=== PATIENT | male | born 1955 | race Caucasian/White ===

== ENCOUNTER 2016-09-19 09:14 | Day surgery (SDC) | payer BC ==
[2016-09-14 16:17] VITALS: BMI 42.5
[~2016-09-19 09:14] MED LIST: LACTATED RINGERS 1,000 ML IV SCH
[2016-09-19] MEDS ORDERED: LIDOCAINE 1% 20 ML VIAL (10MG/ML) FOR IV START INTRADERMA ONE (10:12)
[2016-09-19 10:15] VITALS: RESP 16; TEMP 98.2
[2016-09-19] MEDS ORDERED: PROPOFOL 10 MG/ML 20 ML VIAL IV ONE (10:31)
--- NOTE | 2016-09-19 10:57 | P.PCN ---
Date of Procedure: 09/19/16 Procedure(s) Performed: Procedure: Total colonoscopy Preoperative diagnosis: Screening for neoplasia, patient has family history of colon cancer. Postoperative diagnosis: Diverticulosis with no evidence of acute diverticulitis , strictures, polyps or cancer. Preparation: HalfLytely prep. Sedation: Was provided by anesthesia. Brief clinical history: The patient is a 61-year-old male who is scheduled for this evaluation for screening for neoplasia because of history of colon cancer in his mother. His last exam was in August 2011. The patient has no abdominal complaints, bleeding or anemia. Procedure: With the patient on his left lateral decubitus position and after informed consent and adequate sedation, the perianal area was inspected and it did not show any fissures or fistulas. There were no masses felt on digital rectal examination. The Olympus CFQ 160L video colonoscope was then inserted in the rectum in the usual fashion and advanced to the cecum. There were multiple diverticular orifices seen scattered on the left side and occasional diverticular orifices seen around the hepatic flexure with no evidence of acute diverticulitis or strictures. The mucosa appeared healthy. No polyps or tumors were seen. I retroflexed endoscope in the rectum before the endoscope was withdrawn. The patient tolerated the procedure well. Plan: The patient was reassured. Discussed dietary measures. With his family history, I am recommending repeat exam in 5 years. He will follow up with you as planned.
[2016-09-19 11:13] VITALS: BP 118/80; PULSE 83
== END 2016-09-19 11:48 | disposition home or self-care (01) ==
LOC: ORWHC2ENDO 09:14
DX: Z12.11 Encounter for screening for malignant neoplasm of colon (principal); K57.30 Diverticulosis of large intestine without perforation or abscess without bleeding; Z80.0 Family history of malignant neoplasm of digestive organs; I10 Essential (primary) hypertension; E78.5 Hyperlipidemia, unspecified; G47.33 Obstructive sleep apnea (adult) (pediatric); K21.9 Gastro-esophageal reflux disease without esophagitis; Z79.899 Other long term (current) drug therapy
CPT/HCPCS: J2704; G0105

== ENCOUNTER → 2017-09-22 | Outpatient (CLI) | payer BC ==
--- NOTE | 2017-09-22 17:31 | XR ---
EXAMINATION TYPE: XR chest 2V DATE OF EXAM: 09/22/2017 COMPARISON: NONE HISTORY: Cough TECHNIQUE: Frontal and lateral views of the chest are obtained. FINDINGS: There is small linear density at the left lung base. Heart size is normal. There is no ple ural effusion. Bony thorax is intact. Pulmonary vascularity is normal. IMPRESSION: Subsegmental atelectasis at the left lung base. No pulmonary consolidation.
== END | disposition home or self-care (01) ==
LOC: LABWHC1 17:14
PROVIDERS: ATTEND Internal Medicine
DX: J98.11 Atelectasis (principal); R07.89 Other chest pain
CPT/HCPCS: 36415; 71046; 82550

== ENCOUNTER 2017-09-29 13:09 | Emergency (ER) | payer BC ==
[2017-09-29 13:31] VITALS: TEMP 97.7
[2017-09-29] MEDS ORDERED: SODIUM CHLORIDE 0.9% 500 ML IV STA (13:51)
[2017-09-29] MEDS ORDERED: SODIUM CHLORIDE 0.9% 1,000 ML IV STA (13:51)
[2017-09-29] MEDS ORDERED: MECLIZINE 12.5 MG TAB PO STA (13:51)
[2017-09-29 14:06] LABS: Basophils % (A) 0 %; Eosinophils % (A) 1 %; HCT 41.7 % (39.0-53.0); HGB 13.8 gm/dL (13.0-17.5); Lymphocytes # (A) 0.9 k/uL (1.0-4.8); Lymphocytes % (A) 14 %; MCH 25.9 pg (25.0-35.0); MCV 78.5 fL (80.0-100.0); Monocytes # (A) 0.3 k/uL (0-1.0); Monocytes % (A) 5 %; Neutrophils # (A) 5.3 k/uL (1.3-7.7); Neutrophils % (A) 80 %; Platelet Count 230 k/uL (150-450); RBC 5.31 m/uL (4.30-5.90); RDW 14.2 % (11.5-15.5); WBC 6.7 k/uL (3.8-10.6)
[2017-09-29 14:14] LABS: ALT 27 U/L (21-72); AST 27 U/L (17-59); Albumin 4.5 g/dL (3.5-5.0); Alkaline Phosphatase 86 U/L (38-126); Anion Gap 17 mmol/L; Blood Urea Nitrogen 15 mg/dL (9-20); Calcium 9.4 mg/dL (8.4-10.2); Carbon Dioxide 23 mmol/L (22-30); Chloride 105 mmol/L (98-107); Glucose 152 mg/dL (74-99); Sodium 145 mmol/L (137-145); Total Bilirubin 0.5 mg/dL (0.2-1.3); Total Protein 7.6 g/dL (6.3-8.2)
[2017-09-29 14:28] VITALS: RESP 16
--- NOTE | 2017-09-29 14:56 | XR ---
EXAMINATION TYPE: XR chest 2V DATE OF EXAM: 09/29/2017 COMPARISON: Chest x-ray September 22, 2017 HISTORY: Dizziness possible pneumonia. TECHNIQUE: Frontal and lateral views of the chest are obtained. FINDINGS: There is persistent lateral left basilar linear scarring or atelectasis. There is no new davis spicious focal air space opacity, pleural effusion, or pneumothorax seen. The cardiac silhouette siz e is upper limits of normal. Spine is straightened with multilevel moderate spurring. IMPRESSION: Stable lateral left basilar linear scarring or atelectasis. No new suspicious focal infi ltrate.
--- NOTE | 2017-09-29 15:27 | CT ---
EXAMINATION TYPE: CT brain wo con DATE OF EXAM: 09/29/2017 COMPARISON: NONE HISTORY: Patient complains of sudden onset dizziness for approximately 3 hours that has since subside d. CT DLP: [address] of the brain was performed. The ventricles, basal cisterns and sulci overlying the cerebral convexities demonstrate mild enlargem ent. There is no evidence for intracranial hemorrhage or sulcal effacement. There is decreased attenuation about the periventricular white matter and deep white matter of both c erebral hemispheres, compatible with chronic small vessel ischemia. Differential diagnosis does inclu de demyelination. No mass effects are seen.No midline shift. Osseous calvarium is intact. If symptoms persist consider MRI. IMPRESSION: 1. Age related atrophic and chronic small vessel ischemic change without acute intracranial process s een at this time.
--- NOTE | 2017-09-29 16:56 | ED ---
Dizziness HPI - General Chief Complaint: Dizziness Stated Complaint: light headed Time Seen by Provider: 09/29/17 13:33 Source: patient Mode of arrival: ambulatory Limitations: no limitations - History of Present Illness Initial Comments: 62 years old male complaining about chest pain ongoing for about a 3 weeks now he has the Dr. Richardson he had EKG done he had a troponin done. Today he develops dizziness about 3 hours prior to coming to the ER he denies any headaches no blurred vision no slurred speech no neck stiffness has chest pain ongoing for 3 weeks now no pleuritic chest pain no abdominal pain frequency urgency dysuria no symptoms of TIA or CVA - Related Data Home Medications Medication Instructions Recorded Confirmed Multivitamin [Men's Multi-Vitamin] 1 each PO DAILY 09/14/16 09/29/17 Omeprazole [PriLOSEC] 20 mg PO DAILY 09/14/16 09/29/17 Simvastatin [Zocor] 20 mg PO HS 09/14/16 09/29/17 Ubidecarenone [Co Q-10] 100 mg PO DAILY 09/14/16 09/29/17 amLODIPine BESYLATE/BENAZEPRIL 1 cap PO DAILY 09/14/16 09/29/17 [Lotrel 10-20 mg Capsule] Ibuprofen [Motrin Ib] 200 mg PO TID 09/29/17 09/29/17 Previous Rx's Medication Instructions Recorded Ciprofloxacin-Dexameth [Ciprodex 4 drops BOTH EARS BID 10 Days #1 ml 09/29/17 Otic Susp] Meclizine [Antivert] 25 mg PO BID #15 tab 09/29/17 Allergies Allergy/AdvReac Type Severity Reaction Status Date / Time No Known Allergies Allergy Verified 09/29/17 14:09 Review of Systems ROS Statement: Those systems with pertinent positive or pertinent negative responses have been documented in the HPI. ROS Other: All systems not noted in ROS Statement are negative. Past Medical History Past Medical History: GERD/Reflux, Hyperlipidemia, Hypertension History of Any Multi-Drug Resistant Organisms: None Reported Past Surgical History: Appendectomy Additional Past Surgical History / Comment(s): COLONOSCOPY Past Anesthesia/Blood Transfusion Reactions: No Reported Reaction Past Psychological History: No Psychological Hx Reported Smoking Status: Never smoker Past Alcohol Use History: Occasional Past Drug Use History: None Reported - Past Family History Mother Family Medical History: No Reported History General Exam - General Exam Comments Initial Comments: General: The patient is awake and alert, in no distress, and does not appear acutely ill. She has is 15 Skin: Skin is warm and dry and no rashes or lesions are noted. Eye: Pupils are equal, round and reactive to light, extra-ocular movements are intact; there is normal conjunctiva bilaterally. Ears, nose, mouth and throat: There are moist mucous membranes and no oral lesions. Notice otitis on the left side Neck: The neck is supple, there is no tenderness Cardiovascular: There is a regular rate and rhythm. No murmur, rub or gallop is appreciated. Respiratory: To auscultation bilateral, no wheezing no rhonchi no distress respiratory ortega noticed Gastrointestinal: Soft, non-distended, non-tender abdomen without masses or organomegaly noted. There is no rebound or guarding present. Bowel sounds are unremarkable. Back: There is no tenderness to palpation in the midline. There is no obvious deformity. Musculoskeletal: Normal ROM, no tenderness, There is no pedal edema. There is no calf tenderness or swelling. No cords were appreciated. Neurological: CN II-XII intact, Cranial nerves III through XII are intact. There are no obvious motor or sensory deficits. Coordination appears grossly intact. Speech is normal. Psychiatric: Cooperative, appropriate mood & affect, normal judgment. Limitations: no limitations Course Vital Signs 09/29/17 09/29/17 09/29/17 13:28 14:26 16:46 Temperature 97.7 F Pulse Rate 86 96 100 Respiratory 18 16 16 Rate Blood Pressure 143/82 158/86 169/74 O2 Sat by Pulse 96 97 96 Oximetry urinalysis CBC, troponin, EKG, compressive metabolic panel, chest x-ray, head CT are unremarkable, orthostatic vitals are unremarkable as well, all these findings were discussed with the patient his dizziness is better he is going to ambulate in the department see if is stable on his feet if he is then will discharge him with the Ciprodex eardrops and then he will follow up with cardiology, ambulated well there was no dizziness at this point is no question of brain stem infarct as well as chest pain is concerned it has been ongoing for a few weeks now and will refer him to cardiology EKG Findings - EKG Comments: EKG Findings:: EKG is normal sinus rhythm ventricular rate is 87 KS interval is 192 QRS duration is 72 QT/QTc is 362/435 review of this EKG reveals T-wave inversion in lead [address] elevation or ST depression noticed Medical Decision Making - Lab Data Result diagrams: 09/29/17 13:54 09/29/17 13:54 Lab Results 09/29/17 09/29/17 09/29/17 Range/Units 13:54 13:54 13:54 WBC 6.7 (3.8-10.6) k/uL RBC 5.31 (4.30-5.90) m/uL Hgb 13.8 (13.0-17.5) gm/dL Hct 41.7 (39.0-53.0) % MCV 78.5 L (80.0-100.0) fL MCH 25.9 (25.0-35.0) pg MCHC 33.0 (31.0-37.0) g/dL RDW 14.2 (11.5-15.5) % Plt Count 230 (150-450) k/uL Neutrophils % 80 % Lymphocytes % 14 % Monocytes % 5 % Eosinophils % 1 % Basophils % 0 % Neutrophils # 5.3 (1.3-7.7) k/uL Lymphocytes # 0.9 L (1.0-4.8) k/uL Monocytes # 0.3 (0-1.0) k/uL Eosinophils # 0.0 (0-0.7) k/uL Basophils # 0.0 (0-0.2) k/uL Sodium 145 (137-145) mmol/L Potassium 4.0 (3.5-5.1) mmol/L Chloride 105 (98-107) mmol/L Carbon Dioxide 23 (22-30) mmol/L Anion Gap 17 mmol/L BUN 15 (9-20) mg/dL Creatinine 0.80 (0.66-1.25) mg/dL Est GFR (CKD-EPI)AfAm >90 (>60 ml/min/1.73 sqM) Est GFR (CKD-EPI)NonAf >90 (>60 ml/min/1.73 sqM) Glucose 152 H (74-99) mg/dL Calcium 9.4 (8.4-10.2) mg/dL Total Bilirubin 0.5 (0.2-1.3) mg/dL AST 27 (17-59) U/L ALT 27 (21-72) U/L Alkaline Phosphatase 86 (38-126) U/L Troponin I <0.012 (0.000-0.034) ng/mL Total Protein 7.6 (6.3-8.2) g/dL Albumin 4.5 (3.5-5.0) g/dL Disposition Clinical Impression: Dizziness, Chest pain Disposition: HOME SELF-CARE Condition: Good Instructions: Dizziness (ED) Prescriptions: Ciprofloxacin-Dexameth [Ciprodex Otic Susp] 4 drops BOTH EARS BID 10 Days #1 ml Meclizine [Antivert] 25 mg PO BID #15 tab Is patient prescribed a controlled substance at d/c from ED?: No If prescribed controlled substance>3 days was MAPS reviewed?: No When asked, does pt state using other controlled substances?: No Referrals: Mauro Richardson MD [Primary Care Provider] - 1-2 days Gustavo Diego MD [STAFF PHYSICIAN] - 1-2 days
[2017-09-29 17:42] VITALS: BP 152/80; PULSE 93
== END 2017-09-29 17:30 | disposition home or self-care (01) ==
LOC: EC 13:09
DX: R42 Dizziness and giddiness (principal); R07.9 Chest pain, unspecified; K21.9 Gastro-esophageal reflux disease without esophagitis; I10 Essential (primary) hypertension; E78.5 Hyperlipidemia, unspecified; Z79.1 Long term (current) use of non-steroidal anti-inflammatories (NSAID); Z79.899 Other long term (current) drug therapy
CPT/HCPCS: 36415; 70450; 71046; 80053; 84484; 85025; 93005; 96360; 96361; 99284

== ENCOUNTER 2022-03-04 08:47 | Day surgery (SDC) | payer BC, MEDICARE ==
[~2022-03-04 08:47] MED LIST changes: +LIDOCAINE 1% (10MG/ML) FOR IV START INTRADERMA PRN
[2022-03-04 09:20] VITALS: RESP 16; TEMP 98
[2022-03-04] MEDS ORDERED: PROPOFOL 10 MG/ML 20 ML VIAL IV ONE (10:06)
[2022-03-04] MEDS ORDERED: fentaNYL (PF) 50 MCG/ML 2 ML AMP ONE (10:06)
--- NOTE | 2022-03-04 10:33 | P.PCN ---
Date of Procedure: 03/04/22 Procedure(s) Performed: BRIEF HISTORY: Patient is a 66-year-old pleasant male scheduled for an elective colonoscopy as a part of a for colon cancer and family history of colon cancer. His mother was diagnosed with colon cancer at age 83. PROCEDURE PERFORMED: Colonoscopy. PREOPERATIVE DIAGNOSIS: Screening for colon cancer and family history of colon cancer. IV sedation per Anesthesia. PROCEDURE: After informed consent was obtained, the patient, was brought into the endoscopy unit. IV sedation was administered by Anesthesia under continuous monitoring. Digital rectal examination was normal. Initially the Olympus CF-160 flexible video colonoscope was then inserted in the rectum, gradually advanced into the cecum without any difficulty. Careful examination was performed as the scope was gradually being withdrawn. Ileocecal valve and the appendiceal orifice were visualized and appeared normal. Prep was excellent. Mucosa of the cecum, ascending colon, transverse colon, descending colon, sigmoid colon, and rectum appeared normal. Scattered left-sided diverticulosis Retroflexion was performed in the rectum and no lesions were seen. The patient tolerated the procedure well. IMPRESSION: Normal-appearing colon from rectum to cecum no evidence of colorectal neoplasia scattered sigmoid diverticulosis. . RECOMMENDATIONS: Findings of this examination were discussed with the patient as his family. He was advised to have a repeat colonoscopy in 5 years because of the family history of colon cancer..
[2022-03-04 11:14] VITALS: BP 118/87; PULSE 88
== END 2022-03-04 11:16 | disposition home or self-care (01) ==
LOC: ORWHC2ENDO 08:47
PROVIDERS: ATTEND Internal Medicine Gastroenterology
DX: Z12.11 Encounter for screening for malignant neoplasm of colon (principal); I10 Essential (primary) hypertension; E78.5 Hyperlipidemia, unspecified; G47.33 Obstructive sleep apnea (adult) (pediatric); C44.90 Unspecified malignant neoplasm of skin, unspecified; Z79.899 Other long term (current) drug therapy; Z80.0 Family history of malignant neoplasm of digestive organs
CPT/HCPCS: J3010; J2704; G0105

== ENCOUNTER → 2023-04-05 | Outpatient (CLI) | payer MEDICARE ==
--- NOTE | 2023-04-05 15:12 | P.SLEEP ---
History of Present Illness DATE: 04/05/2023 CONSULTATION/NEW PATIENT EVALUATION HISTORY OF PRESENT ILLNESS/SLEEP-WAKE EVALUATION: 68 year old gentleman had been evaluated in the sleep center for obstructive sleep apnea hypopnea syndrome. Patient was seen in our office in 2012. At that time sleep study showed severe obstructive sleep apnea hypopnea syndrome with apnea-hypopnea index 78. Since that time patient is on treatment with CPAP. I checked his CPAP unit. CPAP unit is old. Pressure is 8 cm of water. A feeding showed usage of the machine 100 nights average 8.1 hour per night, which demonstrated great compliance with treatment. Patient does not have any information about apnea-hypopnea index. Patient increased his weight on 18 pounds since previous visit SLEEP SCHEDULE: Usually sleep schedule from 9:30 PM, patient wakes up from sleep at 2 AM and goes back to bed at around 4 AM. Totally he sleeps for about 7-1/2 8 hours per night. FALLING ASLEEP: No problems with falling asleep. DURING SLEEP: According to patient no significant snoring on CPAP. Patient wakes up from sleep once with 2 times with nocturia. No history of hypnogogical hallucinations, sleep paralysis, or cataplexy. DURING THE DAY/WAKE STATE: No significant excessive daytime sleepiness. [place] sleepiness scale is 4. Patient may take naps at 2 PM. PAST MEDICAL HISTORY: Hypertension, acid reflux, hyperlipidemia. PAST SURGICAL HISTORY: Appendectomy, stretching of esophagus. MEDICATIONS: Amlodipine/benazepril 10-40 mg once a day, hydrochlorothiazide 12.5 mg once a day, omeprazole 20 mg once a day, simvastatin 20 mg once a day,. SOCIAL HISTORY: Negative for smoking, alcohol consumption rarely. FAMILY HISTORY: Hypertension. REVIEW OF SYSTEMS: Some awakenings from sleep. No fevers. No double vision. No recent chest pain. No shortness of breath. No abdominal pain. No bleeding episodes. No blood in urine. No seizure episodes. PHYSICAL EXAMINATION: GENERAL: A pleasant patient without any distress. VITAL SIGNS: BP 163/99, HR 101, RR 16, weight 290 pounds, height 5 foot 8 inches, body mass index 43.9. HEENT: PERRLA, EOMI. Evaluation of oropharynx showed tongue protrudes midline, low position of soft palate Mallampati 2, big uvula. NECK: Supple. No JVD. Thyroid is not palpable. 19 inches in circumference. LUNGS: Clear to percussion and to auscultation. Good air exchange. No wheezing or rhonchi. HEART: S1, S2 regular. No murmurs, gallops or rubs. ABDOMEN: Soft and nontender. Bowel sounds are present. No organomegaly appreciated. EXTREMITIES: No clubbing or cyanosis. LEVEL VIAL INSIDE GRINDER: Awake, alert, and oriented x3. Cranial nerves 2 to 7 intact. There is no fasciculation or atrophy noted. No focal deficits observed. ASSESSMENT: 1. History of obstructive sleep apnea diagnosed in our institution in 2012 in severe range. Patient continued to use his CPAP equipment every night for the whole night. CPAP unit is old, doesn't have information about apnea-hypopnea index. Wide neck 19 inches in circumference, small oropharyngeal airspace. Obstructive sleep apnea-hypopnea syndrome. 2. Obesity, BMI 43.9, patient increased his weight on 18 pounds since time of previous sleep study. 3. Hypertension. 4. Hyperlipidemia. 5 acid reflux. 6 . Status post esophageal stretching. 7. Status post appendectomy. PLAN: 1. Home sleep apnea test for evaluation of patient's breathing during sleep at the present time. 2. Patient will need to get new CPAP equipment. 3. Preferable position during sleep on the side. 4. No driving if patient feels any sleepiness. Patient is aware of civil and criminal liability for unsafe driving. 5. Sleep hygiene with regular sleep time for at least 7.5-8 hours. 6. Watching and losing weight. 7. Following plan after reading sleep study. Thank you very much for referring this patient for consultation. Sincerely, Alexandr Calvert MD, PhD, FAASM. Diplomat of [place] [employer], Sleep Medicine Board by [place] [employer] [place] [employer] [facility] [place] Past Medical History Past Medical History: Atrial Fibrillation, GERD/Reflux, Hyperlipidemia, Hypertension, Sleep Apnea/CPAP/BIPAP Additional Past Medical History / Comment(s): family hx. colon cancer, "extra heart beat" @times, last EKG showed a-fib per pt, had some testing, only takes low dose aspirin, uses CPAP, skin cancer History of Any Multi-Drug Resistant Organisms: None Reported Past Surgical History: Appendectomy Additional Past Surgical History / Comment(s): COLONOSCOPY, vasectomy Past Anesthesia/Blood Transfusion Reactions: No Reported Reaction Smoking Status: Never smoker - Past Family History Mother Family Medical History: Cancer Additional Family Medical History / Comment(s): colon Medications and Allergies Home Medications Medication Instructions Recorded Confirmed Type Multivitamin [Men's Multi-Vitamin] 1 each PO DAILY 09/14/16 03/04/22 History Omeprazole [PriLOSEC] 20 mg PO DAILY 09/14/16 03/04/22 History Simvastatin [Zocor] 20 mg PO DAILY 09/14/16 03/04/22 History Ubidecarenone [Co Q-10] 100 mg PO DAILY 09/14/16 03/04/22 History amLODIPine BESYLATE/BENAZEPRIL 1 cap PO DAILY 09/14/16 03/04/22 History [Lotrel 10-20 mg Capsule] Aspirin 81 mg PO DAILY 03/03/22 03/04/22 History Allergies Allergy/AdvReac Type Severity Reaction Status Date / Time No Known Allergies Allergy Verified 03/04/22 09:14 Sleep Note - Sleep Note Sleep Note: Temperature: Pulse Rate: Respiratory Rate: Blood Pressure: SpO2: Height: Weight: BMI: Neck Circumference:
== END ==
LOC: 3 N SLEEP 14:20
PROVIDERS: ATTEND Internal Medicine
DX: G47.33 Obstructive sleep apnea (adult) (pediatric) (principal); E66.9 Obesity, unspecified; I10 Essential (primary) hypertension; E78.5 Hyperlipidemia, unspecified; K21.9 Gastro-esophageal reflux disease without esophagitis; Z90.49 Acquired absence of other specified parts of digestive tract; Z68.41 Body mass index [BMI] 40.0-44.9, adult; Z98.890 Other specified postprocedural states; Z79.899 Other long term (current) drug therapy; Z79.82 Long term (current) use of aspirin
CPT/HCPCS: 99211

== ENCOUNTER → 2023-04-24 | Outpatient (CLI) | payer MEDICARE ==
--- NOTE | 2023-04-26 12:21 | P.PCN ---
Description of Procedure: CLINICAL: A home sleep apnea test has been done for confirmation of possible obstructive sleep apnea-hypopnea syndrome. DESCRIPTION OF PROCEDURE: RESULTS: Recording time was 8 hours 52 minutes. Evaluation time was 8 hours 40 minutes. Evaluation time is sufficient for making conclusion about results of the test. Raw data of sleep recording has been reviewed and is adequate. Respiratory channel showed 117 apneas and 193 hypopneas. Apnea-hypopnea index was 35.7 per hour. Pulse rate in the range between minimum 49, maximum 106, average 63 by computer calculation. Lowest desaturation was 81 %. IMPRESSION: 1. Severe Obstructive Sleep Apnea Hypopnea Syndrome. Please see other impressions from consultation. PLAN: 1. The patient should have PAP titration for correction of respiratory abnormallities during sleep. 2. I will see patient for follow up visit to discuss results of the test, evaluate clinical response on treatment with PAP therapy and make any necessary adjustments related to mask fitting, pressure, and humidification. 3. Watching and losing weight. 4. Sleep hygiene with regular time in bed for at least 8 hours. 5. No driving if feeling any sleepiness. Thank you very much for allowing me to participate in the management of your patient. Sincerely, Alexandr Calvert MD, PhD, FAASM Diplomat of [place] [employer] Sleep Medicine Board of [place] [employer] [facility] [place]
== END ==
LOC: 3 N SLEEP 13:00
PROVIDERS: ATTEND Internal Medicine
DX: G47.33 Obstructive sleep apnea (adult) (pediatric) (principal)

== ENCOUNTER 2023-05-14 19:45 | Outpatient (CLI) | payer MEDICARE ==
--- NOTE | 2023-05-17 12:33 | P.PCN ---
Description of Procedure: CLINICAL: Titration with positive air pressure has been done for correction of respiratory abnormalities during sleep. DESCRIPTION OF PROCEDURE: The standard montage for clinical polysomnography included the electroencephalogram, the electrocardiogram, the mentalis surface electromyography and Lead II cardiography. The respiratory battery consisted of measurements of nasal /buccal air flow, pressure transducer measurements from the nose, thoracic and /or abdominal effort and intercostal surface electromyography. Video monitoring has been done to check for any parasomnia events. Nocturnal oxyhemoglobin saturations were obtained by finger oximetry. Step-ortega titration with positive airway pressure was utilized to control respiratory events. Raw data of sleep recording has been reviewed and is adequate. RESULTS: Sleep efficiency was extremely short 58.2 %. Latency to sleep onset was normal 19.5 minutes.]. Sleep architecture showed stage N1 slightly increased to 9.0 %, Delta sleep was absent 0 %, REM sleep was extremely short 1.2 %. Heart rate was minimum 65 BPM, maximum 76 BPM, average 70 BPM. EMG showed 0 periodic limb movements per hour . PAP titration have been done with CPAP up to the pressure 10 cm H2O. The best results were at the pressure 10 cm H2O. Apnea hypopnea index reduced to 1.3. IMPRESSION: 1. Obstructive sleep apnea hypopnea syndrome mostly on controle with PAP treatment. 2. No significant periodic limb movements have been documented. Please see other impressions from consultation. PLAN: 1. The patient will have treatment with positive air pressure equipment with the level of pressure AutoPAP 5-12 cm H2O and should use it every night for the whole night. 2. Watching and losing weight. 3. Sleep hygiene with regular time in bed for at least 8 hours. 4. No driving if feeling any sleepiness. 5. I will see the patient for follow up visit to explain the results of the test, recommendations, check compliance with treatment and make any necessary adjustment related to mask fitting, pressure and humidification. Thank you very much for allowing me to participate in the management of your patient. Sincerely, Alexandr Calvert MD, PhD, FAASM Diplomat of [place] [employer] Sleep Medicine Board of [place] [employer] [facility] [place]
== END 2023-05-15 05:25 | disposition home or self-care (01) ==
LOC: 3 N SLEEP 19:45
PROVIDERS: ATTEND Internal Medicine
DX: G47.33 Obstructive sleep apnea (adult) (pediatric) (principal)
CPT/HCPCS: 95811

== ENCOUNTER → 2023-08-10 | Outpatient (CLI) | payer MEDICARE ==
[2023-08-10 15:53] VITALS: BP 147/77; PULSE 80; RESP 16; TEMP 98.1
--- NOTE | 2023-08-10 17:32 | P.PN ---
Subjective DATE: [] FOLLOW UP VISIT. Patient with obstructive sleep apnea hypopnea syndrome return to sleep center for follow-up visit. This is first visit after patient received new CPAP unit. Information from previous visit have been reviewed. Patient is using PAP equipment every night for the whole night, getting PAP supplies in time. The patient does not have significant problems with the mask, PAP unit and humidification. [place] sleepiness scale is 3, which is normal. I checked information from PAP unit. PAP unit pressure 5-12, average 9.8 cm H2O. Usage is 100% for more then 4 hours, average 8.2 hours per night. Leak is 4 l/m, which is in acceptable range. Apnea Hypopnea Index is 1.1, which is normal. MEDICATIONS:1. Amlodipine/benazepril 10-40 mg once a day 2. Hydrochlorothiazide 12.5 mg once a day 3. Omeprazole 20 mg once a day 4. Simvastatin 20 mg once a day During physical exam: GENERAL: A pleasant patient without any distress. VITAL SIGNS: BP 147/77, HR 80, RR 16, weight 291, temperature 98.1, oxygen saturation at room air 96% . HEENT: PERRLA, EOMI.low position of soft palate, Mallapati 2-3 . NECK: Supple. No JVD. LUNGS: Clear to percussion and to auscultation. Good air exchange. No wheezing or rhonchi. HEART: S1, S2 regular. ABDOMEN: Soft and nontender.[] EXTREMITIES: No clubbing or cyanosis. [employer]: Awake, alert, and oriented x3. No focal deficit. Impressions: 1. Obstructive sleep apnea-hypopnea syndrome. Patient demonstrated great compliance with treatment, benefiting from treatment. 2. Hypertension. 3. Obesity, weight is the same as during previous visit, BMI around 44. 4. Hyperlipidemia. 5. Acid reflux. 6. Status post esophageal stretching. 7. Status post appendectomy. Plan: 1. Continue using PAP equipment every night for the whole night. 2. To change air filter at least 1-2 times per month. 3. PAP unit should stay lower then position of the head. 4. Advised patient to remove all remaining water from humidifier canister daily and make it dry after each usage. Refill canister with fresh distilled water before each usage. 5. Sleep hygiene with regular time in bed for at least 8 hours. 6. Precautions related to driving. No driving if feel any sleepiness. 7. I will maintain prescription for PAP supplies including mask, tube, filters. 8. Follow up visit in 6 months or earlier if patient has any problems. 9. Watching and losing weight. Thank you very much for allowing me to participate in the management of your patient. Alexandr Calvert MD, PhD, FAASM. Diplomat of [employer], Sleep Medicine Board by [employer] Adviser of [facility] [place] Objective - Vital Signs Vital signs: Vital Signs Temp 98.1 F 08/10/23 15:40 Pulse 80 08/10/23 15:40 Resp 16 08/10/23 15:40 BP 147/77 08/10/23 15:40 Pulse Ox 96 08/10/23 15:40 FiO2 Intake & Output 08/09/23 08/10/23 08/10/23 18:59 06:59 18:59 Weight 131.995 kg
== END ==
LOC: 3 N SLEEP 15:14
PROVIDERS: ATTEND Internal Medicine
DX: G47.33 Obstructive sleep apnea (adult) (pediatric) (principal); I10 Essential (primary) hypertension; E66.9 Obesity, unspecified; E78.5 Hyperlipidemia, unspecified; K21.9 Gastro-esophageal reflux disease without esophagitis; Z98.890 Other specified postprocedural states; Z99.89 Dependence on other enabling machines and devices; Z90.49 Acquired absence of other specified parts of digestive tract; Z68.41 Body mass index [BMI] 40.0-44.9, adult; Z79.899 Other long term (current) drug therapy; Z79.82 Long term (current) use of aspirin
CPT/HCPCS: 99212

== ENCOUNTER → 2024-03-21 | Outpatient (CLI) | payer MEDICARE ==
[2024-03-21 15:22] VITALS: BP 139/83; PULSE 100; RESP 16; TEMP 98.1
--- NOTE | 2024-03-21 15:45 | P.PROGSL ---
Subjective DATE: 03/21/2024 FOLLOW UP VISIT. Patient with obstructive sleep apnea hypopnea syndrome return to sleep center for follow-up visit. Information from previous visit have been reviewed. Patient is using PAP equipment every night for the whole night, getting PAP supplies in time. The patient does not have significant problems with the mask, PAP unit and humidification. [place] sleepiness scale is 4, which is normal. I checked information from PAP unit. PAP unit pressure 5-12, average 9.9 cm H2O. Usage is 100% for more then 4 hours, average 8.1 hours per night. Leak is 4 l/m, which is in acceptable range. Apnea Hypopnea Index is 1.4, which is normal. MEDICATIONS have been reviewed, please see below. During physical exam: GENERAL: A pleasant patient without any distress. VITAL SIGNS: Please see below, weight is 294 lbs. HEENT: PERRLA, EOMI.low position of soft palate, Mallapati 23. NECK: Supple. No JVD. LUNGS: Clear to percussion and to auscultation. Good air exchange. No wheezing or rhonchi. HEART: S1, S2 regular. ABDOMEN: Soft and nontender.[] EXTREMITIES: No clubbing or cyanosis. CLINICIAN ONCOLOGY: Awake, alert, and oriented x3. No focal deficit. Impressions: 1. Obstructive sleep apnea-hypopnea syndrome. Patient demonstrated great compliance with treatment, benefiting from treatment. 2. Hypertension. 3. Obesity, BMI 43.9, patient increased weight on 3 pounds comparing with previous visit. 4. Hyperlipidemia. 5. Acid reflux. 6. Status post appendectomy. 7. Status post esophageal stretching. Plan: 1. Continue using PAP equipment every night for the whole night. 2. Sleep hygiene with regular time in bed for at least 7.5-8 hours 3. PAP unit should stay lower then position of the head. 4. Advised patient to remove all remaining water from humidifier canister daily and make it dry after each usage. Refill canister with fresh distilled water before each usage. 5. Watching weight. 6. Precautions related to driving. No driving if feel any sleepiness. 7. I will maintain prescription for PAP supplies including mask, tube, filters. 8. Follow up visit in 8 months or earlier if patient has any problems. Thank you very much for allowing me to participate in the management of your patient. Alexandr Calvert MD, PhD, FAASM. Diplomat of [employer], Sleep Medicine Board by [employer] Political Organizer of [facility] [place] cc: Boris Pryor MD Objective - Vital Signs Vital Signs: Vital Signs Temp 98.1 F 03/21/24 15:21 Pulse 100 03/21/24 15:21 Resp 16 03/21/24 15:21 BP 139/83 03/21/24 15:21 Pulse Ox 95 03/21/24 15:21 FiO2 Intake & Output 03/20/24 03/21/24 03/21/24 18:59 06:59 18:59 Weight 133.356 kg Home Medications: Home Medications Medication Instructions Recorded Confirmed Type Multivitamin [Men's Multi-Vitamin] 1 each PO DAILY 09/14/16 03/21/24 History Omeprazole [PriLOSEC] 20 mg PO DAILY 09/14/16 03/21/24 History Simvastatin [Zocor] 20 mg PO DAILY 09/14/16 03/21/24 History Ubidecarenone [Co Q-10] 100 mg PO DAILY 09/14/16 03/21/24 History amLODIPine BESYLATE/BENAZEPRIL 1 cap PO DAILY 09/14/16 03/21/24 History [Lotrel 10-20 mg Capsule] Aspirin 81 mg PO DAILY 03/03/22 03/21/24 History
== END ==
LOC: 3 N SLEEP 15:09
PROVIDERS: ATTEND Internal Medicine
CPT/HCPCS: 99212